=== PATIENT | female | born 1980 | race Two or more races ===

== ENCOUNTER 2017-07-24 10:26 | Emergency (ER) | payer SELFPAY ==
[2017-07-24] MEDS ORDERED: Aspirin Low Dose CHEW TAB* 81 MG PO ONE (10:48)
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
[2017-07-24 11:06] VITALS: BP 116/76
== END 2017-07-24 11:05 | disposition short-term general hospital (02) ==
LOC: UCCORT 10:26
DX: R07.9 Chest pain, unspecified (principal); R00.0 Tachycardia, unspecified; F17.210 Nicotine dependence, cigarettes, uncomplicated
CPT/HCPCS: 93005; 99204; G0463

== ENCOUNTER 2018-04-17 17:19 | Emergency (ER) | payer SELFPAY ==
[2018-04-17 18:33] VITALS: BP 117/75
--- NOTE | 2018-04-17 20:02 | UC ---
General HPI - HPI Summary HPI Summary: PT IS C/O SWELLING ABOVE HER R COLLAR BONE SINCE MONDAY BUT NOW NOTES IT IS INCREASING IN SIZE. 2 DAYS LATER, NOTES THE SAME SWELLING IN HER L GROIN. STATES AREAS ARE TENDER AND BURN. NO ASSOCIATED COUGH, SOB, FEVER OR CHILLS. PT DOES SELF BREAST EXAMS ROUTINELY. NO WEIGHT LOSS OR MALAISE. DENIES KNOWN HX MONO. - History of Current Complaint Chief Complaint: UCSkin Stated Complaint: SKIN COMPLAINT Time Seen by Provider: 04/17/18 19:04 Hx Obtained From: Patient Hx Last Menstrual Period: ~07/13/17 Onset/Duration: Gradual Onset Pain Intensity: 0 Associated Signs & Symptoms: Negative: Cough, Chest Pain, Fever, SOB - Allergy/Home Medications Allergies/Adverse Reactions: Allergies Allergy/AdvReac Type Severity Reaction Status Date / Time No Known Allergies Allergy Verified 04/17/18 18:30 PMH/Surg Hx/FS Hx/Imm Hx - Additional Past Medical History Additional PMH: C-SPINE FX - Surgical History Surgical History: Yes Surgery Procedure, Year, and Place: CERVICAL SURGERY - Family History Known Family History: Positive: None - Social History Lives: With Family Alcohol Use: None Substance Use Type: None Smoking Status (MU): Former Smoker Type: Cigarettes Amount Used/How Often: ~1 PPD Length of Time of Smoking/Using Tobacco: Since Age 17 - Immunization History Vaccination Up to Date: Yes Review of Systems Constitutional: Negative Skin: Negative Eyes: Negative ENT: Negative Respiratory: Negative Cardiovascular: Negative Gastrointestinal: Negative Genitourinary: Negative Motor: Negative Neurovascular: Negative Musculoskeletal: Negative Neurological: Negative Psychological: Negative Is Patient Immunocompromised?: No All Other Systems Reviewed And Are Negative: Yes Physical Exam Triage Information Reviewed: Yes Appearance: Well-Appearing Vital Signs: Initial Vital Signs Temp 98.9 F 04/17/18 18:31 Pulse 70 04/17/18 18:31 Resp 14 04/17/18 18:31 BP 117/75 04/17/18 18:31 Pulse Ox 100 04/17/18 18:31 Vital Signs Reviewed: Yes Eyes: Positive: Conjunctiva Clear ENT: Positive: Pharynx normal, TMs normal. Negative: Nasal congestion, Nasal drainage Neck: Positive: Supple, Nontender, No Lymphadenopathy, Other: - R spraclavicular adenopathy. NO L supraclavicular adenopathy. Respiratory: Positive: Lungs clear, Normal breath sounds, Other: - Breasts have no dimpling, discoloration, masses or discharge Cardiovascular: Positive: RRR, No Murmur Abdomen Description: Positive: Nontender, No Organomegaly, Soft, Other: - L inguinal adenopathy. NO R inguinal adenopahty.. Negative: Distended, Guarding, Hepatomegaly, Splenomegaly Bowel Sounds: Positive: Present Musculoskeletal: Positive: ROM Intact, Other: - No axillary or epitrochlear adenopathy Neurological: Positive: Alert Psychological: Positive: Normal Response To Family, Age Appropriate Behavior Skin Exam: Normal Skin: Negative: rashes Diagnostics - Laboratory Diagnostic Studies Completed/Ordered: cbc with diff and mono spot are pending. - Radiology No standard instances Radiology Interpretation Completed By: ED Physician - wet read=cxr nad Course/Dx - Course Course Of Treatment: Lympadenopathy L groin and R suprcalvicular nodes or uncertain etiology. cbc with diff and mono testing are pending. pt of [facility] thus advised to call and f/u janet. need for f/u stressed to determine cause of adenopathy. - Differential Dx - Multi-Symptom Provider Diagnoses: Lymphadenopathy L groin and R supraclavicular nodes. Discharge - Sign-Out/Discharge Documenting (check all that apply): Patient Departure All imaging exams completed and their final reports reviewed: No - Discharge Plan Condition: Stable Disposition: HOME Patient Education Materials: Lymphadenopathy (ED) Referrals: CHITRA Rhodes [Medical Doctor] - As Soon As Possible Additional Instructions: DIAGNOSIS: R SUPRACLAVICULAR AND LEFT INGUINAL LYMPHADENOPATHY - Billing Disposition and Condition Condition: STABLE Disposition: Home
--- NOTE | 2018-04-18 07:57 | RAD ---
Indication: Supraclavicular adenopathy. 2 views of the chest including dual energy PA views are reviewed. There are no prior studies for comparison. No mediastinal shift is noted. Heart is of normal size and configuration. Lung mcclelland demonstrate no pleural fluid, pneumonia or pneumothorax. There is fusion of C6 and C7. IMPRESSION: No active cardiopulmonary disease is noted. R0
--- NOTE | 2018-04-18 08:23 | UC ---
- Progress Note Progress Note: Patient Name: TRISTON REES Medical Record#: [id number] Ordering Physician: June WHITLEY Acct.#: [id number] : 1980 Age: 37 Sex: F Location: [facility] Exam Date: 04/17/181931 ADM Status: DEP ER Order Information: CHEST PA & LAT 2 VWS Accession Number: [id number] CPT: 62460 Indication: Supraclavicular adenopathy. 2 views of the chest including dual energy PA views are reviewed. There are no prior studies for comparison. No mediastinal shift is noted. Heart is of normal size and configuration. Lung mcclelland demonstrate no pleural fluid, pneumonia or pneumothorax. There is fusion of C6 and C7. IMPRESSION: No active cardiopulmonary disease is noted. R0 <Electronically signed by Radha Mark MD in [place]> 04/18/18752 Dictated By: Radha Mark MD Dictated Date/Time: 04/18/18752 Transcribed Date/Time: 04/18/18751 Copy to: CC:Forrest Irvin MD; June WHITLEY; No Primary Care Phys,NOPCP Imaging - [facility] [address] [place] [address] ph ([phone]) ph ([phone]) ph ([phone]) This report is only to be considered final once signed by the Provider(s) as displayed in the "<Electronically Signed by >" field (s). Absence of a signature indicates the report is in a draft status and still needs to be finalized. In the event this document was created by someone other than the signing Provider, the individual initiating the document will be listed in the "Entered by:" or "Dictated by:" mcclelland. 1 of 1 Discharge - Sign-Out/Discharge Documenting (check all that apply): Post-Discharge Follow Up All imaging exams completed and their final reports reviewed: No - Discharge Plan Condition: Stable Disposition: HOME Patient Education Materials: Lymphadenopathy (ED) Referrals: CHITRA Rhodes [Medical Doctor] - As Soon As Possible Additional Instructions: DIAGNOSIS: R SUPRACLAVICULAR AND LEFT INGUINAL LYMPHADENOPATHY - Billing Disposition and Condition Condition: STABLE Disposition: Home
[2018-04-18 10:58] LABS: ABS Basophils 0 10^3/ul (0-0.2); ABS Eosinophils 0.1 10^3/ul (0-0.6); ABS Lymphocytes 2.2 10^3/ul (1.0-4.8); ABS Monocytes 0.6 10^3/ul (0-0.8); ABS Neutrophils 2.8 10^3/ul (1.5-7.7); ABS Nucleated RBC 0 10^3/ul; Eosinophil % 2.5 % (0-6); Hematocrit 33 % (35-47); Lymphocyte % 37.2 % (25-47); Mean Corpuscular HGB Conc 34 g/dl (31-36); Mean Corpuscular Hemoglobin 31 pg (27-31); Mean Corpuscular Volume 90 fL (80-97); Mean Platelet Volume 11.3 um3 (7.4-10.4); Nucleated Red Blood Cells % 0.1; Platelet Count 176 10^3/ul (150-450); Red Blood Count 3.61 10^6/ul (4.00-5.40); Red Cell Distribution Width 15 % (10.5-15); White Blood Count 5.8 10^3/ul (3.5-10.8)
--- NOTE | 2018-04-19 07:30 | ED ---
Progress - Progress Note Progress Note: CBC shows anemia, patient needs to be informed and result sent to primary. She will need follow up for anemia work up. Course/Dx - Course Course Of Treatment: Lympadenopathy L groin and R suprcalvicular nodes or uncertain etiology. cbc with diff and mono testing are pending. pt of [facility] thus advised to call and f/u janet. need for f/u stressed to determine cause of adenopathy. Discharge - Sign-Out/Discharge Documenting (check all that apply): Patient Departure All imaging exams completed and their final reports reviewed: Yes - Discharge Plan Condition: Stable Disposition: HOME Patient Education Materials: Lymphadenopathy (ED) Referrals: CHITRA Rhodes [Medical Doctor] - As Soon As Possible Additional Instructions: DIAGNOSIS: R SUPRACLAVICULAR AND LEFT INGUINAL LYMPHADENOPATHY - Billing Disposition and Condition Condition: STABLE Disposition: Home
== END 2018-04-17 20:09 | disposition home or self-care (01) ==
LOC: UCCORT 17:19
DX: R59.0 Localized enlarged lymph nodes (principal); Z87.891 Personal history of nicotine dependence
CPT/HCPCS: 36415; 71046; 85025; 86308; 86664; 86665; 99211; G0463